=== PATIENT | female | born 1950 | race Caucasian/White ===

== ENCOUNTER → 2019-06-16 12:50 | Outpatient (BNVA) | payer MEDICARE, SELFPAY | PROVIDERS: Family Provider Family Medicine; PCP Family Medicine; Referring Provider Registered Nurse; Visit Provider Anesthesiology Pain Medicine | DX: M54.9 Dorsalgia, unspecified (principal); Z79.891 Long term (current) use of opiate analgesic | CPT/HCPCS: 99204 ==

== ENCOUNTER → 2019-07-14 10:24 | Outpatient (BNVA) | payer MEDICARE, SELFPAY | PROVIDERS: Family Provider Family Medicine; PCP Family Medicine; Visit Provider Anesthesiology Pain Medicine | DX: M51.36 Other intervertebral disc degeneration, lumbar region (principal); M54.9 Dorsalgia, unspecified; Z79.891 Long term (current) use of opiate analgesic | CPT/HCPCS: 99213; 99214 ==

== ENCOUNTER → 2019-08-25 09:25 | Outpatient (BNVA) | payer MEDICARE, SELFPAY | PROVIDERS: Family Provider Family Medicine; PCP Family Medicine; Visit Provider Anesthesiology Pain Medicine | DX: M51.36 Other intervertebral disc degeneration, lumbar region (principal); M54.9 Dorsalgia, unspecified; Z79.891 Long term (current) use of opiate analgesic | CPT/HCPCS: 99213; 99214 ==

== ENCOUNTER → 2019-10-04 12:31 | Outpatient (BNVA) | payer MEDICARE, SELFPAY | PROVIDERS: Family Provider Family Medicine; PCP Family Medicine; Visit Provider Anesthesiology Pain Medicine | DX: M47.816 Spondylosis without myelopathy or radiculopathy, lumbar region (principal); Z79.891 Long term (current) use of opiate analgesic | CPT/HCPCS: 64493; 64494; 64495; J3490 ==

== ENCOUNTER → 2019-10-18 09:49 | Outpatient (BNVA) | payer MEDICARE, SELFPAY | PROVIDERS: Family Provider Family Medicine; PCP Family Medicine; Visit Provider Anesthesiology Pain Medicine | DX: M54.42 Lumbago with sciatica, left side (principal); M51.36 Other intervertebral disc degeneration, lumbar region; M47.816 Spondylosis without myelopathy or radiculopathy, lumbar region; M54.9 Dorsalgia, unspecified | CPT/HCPCS: 99213 ==

== ENCOUNTER 2024-09-02 12:21 | Emergency (ER) | payer MEDICARE, SELFPAY ==
--- OUTSIDE RECORDS SUMMARY | 2024-09-02 12:31 | XMS_ITS | Clinical Summary ---
Author Organization [facility] Address [address] 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 Name Role Phone Anusha Woodward DO Primary Care Provider Allergies Active Allergy Reactions Criticality Noted Date Comments Adhesive Tape Other (See Comments) 04/25/2009 blisters Adhesive Tape-Silicones Other (See Comments) Other reaction(s): Other (See Comments), blisters, Other reaction(s): Other (See Comments), blisters Codeine Other (See Comments) 09/01/2007 Stomach cramps, Other reaction(s): Other (See Comments), Stomach cramps, Stomach cramps, Other reaction(s): Other (See Comments), Stomach cramps Tetracycline Nausea and Vomiting,Other (See Comments) Low 09/01/2007 Medications cholecalciferol, vitamin D3, (VITAMIN D3 ORAL) Take 1 Capsule by mouth daily. Active venlafaxine (EFFEXOR XR) 75 mg Extended Release 24 hour capsule Take 1 Capsule (75 mg) by mouth daily. 90 Capsule 4 4 Active lisinopriL (PRINIVIL) 10 mg tabletIndication s:Essential hypertension Take 1 tablet by mouth once daily 100 Tablet 3 4 Active simvastatin (ZOCOR) 20 mg tablet Take 1 tablet by mouth once daily 90 Tablet 4 4 Active rOPINIRole (REQUIP) 2 mg TabletIndication s:Restless leg syndrome Take 1 Tablet (2 mg) by mouth daily at bedtime. 100 Tablet 3 4 Active pantoprazole (PROTONIX) 40 mg Tablet, Delayed Release (E.C.)Indication s:Gastroesophage al reflux disease without esophagitis Take 1 Tablet (40 mg) by mouth daily. 90 Tablet 4 4 Active amitriptyline (ELAVIL) 50 mg tabletIndication s:Restless leg syndrome Take 1 Tablet (50 mg) by mouth daily at bedtime. 90 Tablet 4 4 Active FERROUS SULFATE ORAL Take by mouth daily. Active isosorbide mononitrate (IMDUR) 120 mg Extended Release 24 hour tablet Take 1 Tablet (120 mg) by mouth daily in the morning. 100 Tablet 3 4 Active traZODone (DESYREL) 150 mg tablet Take 1 Tablet (150 mg) by mouth daily at bedtime. 90 Tablet 4 4 Active VITAMIN A ORAL Take 1 Tablet by mouth daily. Active magnesium oxide 500 mg magnesium Tablet Take 1 Tablet by mouth daily at bedtime. Active nitroglycerin (NITROSTAT) 0.4 mg Tablet, SublingualIndica tions:Angina pectoris Place 1 Tablet (0.4 mg) under tongue every 5 minutes as needed for Chest Pain. 50 Tablet 2 5 Active ASCORBIC ACID, VITAMIN C, ORAL Take by mouth. Active fluticasone propionate (FLONASE) 50 mcg/spray [place], Suspension nasal inhalerIndicatio ns:Chronic nasal congestion Administer 2 Sprays in each nostril daily. 16 Gram 3 5 Active HYDROcodone-acet aminophen (NORCO) 10-325 mg TabletIndication s:Closed wedge compression fracture of L2 vertebra, sequela Take 1 Tablet by mouth every 8 hours as needed for Pain, Moderate. Do not fill until 08/12/2024 Max Daily Amount: 3 Tablets 90 Tablet 5 Active HYDROcodone-acet aminophen (NORCO) 10-325 mg TabletIndication s:Closed wedge compression fracture of L2 vertebra, sequela Take 1 Tablet by mouth every 8 hours as needed for Pain, Moderate. Max Daily Amount: 3 Tablets 90 Tablet 5 025 Discontin ued(Reord er) Active Problems Problem Noted Date Diagnosed Date Closed wedge compression fracture of second lumb ar vertebra 07/14/2022 Restless leg syndrome 07/14/2022 Obesity (BMI 30.0-34.9) 03/15/2022 Prediabetes 12/14/2021 Stage 3b chronic kidney disease 07/15/2019 Overview (08/25/2020): 35-40% Kidney Function sees Dr Nelson 35-40% Kidney Function sees Dr Nelson 35-40% Kidney Function sees Dr Nelson 35-40% Kidney Function sees Dr Nelson Opiate analgesic use agreement exists 05/07/2017 Hx of CABG 01/27/2012 Benign essential hypertension 01/27/2012 Right proximal humerus fracture 06/12/2010 Lower limb length difference 05/02/2010 Ribs, multiple fractures 05/16/2009 Raynaud phenomenon 05/16/2009 Facet arthropathy of spine 05/16/2009 Overview (08/25/2020): L4-5 L4-5 L4-5 L4-5 Closed fracture of metatarsal bone 05/16/2009 Overview (08/25/2020): Right 1st Right 1st Right 1st Right 1st Pain in joint, ankle and foot 04/25/2009 Overview (08/25/2020): Distal right 5th metatarsal area Distal right 5th metatarsal area Distal right 5th metatarsal area Distal right 5th metatarsal area Atherosclerosis of sioux co ronary artery of sioux heart without angina pectoris 10/26/2008 Mixed hyperlipidemia 10/01/2008 Recurrent major depressive disorder, in full rem ission Gastroesophageal reflux disease without esophagi tis Essential hypertension GERD (gastroesophageal reflux disease) Resolved Problems Problem Noted Date Diagnosed Date Resolved Date Compression fracture of L4 lumbar vertebra 03/28/2009 04/25/2009 Compression fracture of thoracic vertebra 03/28/2009 04/25/2009 Severe obesity (BMI 35.0-39. 9) with comorbidity 10/26/2008 03/15/2022 Encounters Date Type Department Care Team Description 08/09/2024 Refill [facility] [address] [place] [address] Anusha Woodward DO Closed wedge compression fracture of L2 vertebra, sequela 07/21/2024 External Device Data [facility] ABSTRACTION Provider, Abstract 07/20/2024 External Device Data STL ABSTRACTION Provider, Abstract 07/12/2024 Refill [facility] [address] [place] [address] Anusha Woodward DO Closed wedge compression fracture of L2 vertebra, sequela 07/08/2024 8:50 AM CDT Office Visit [facility] Gen Spec Surg [address] [place] [address] Cortez Rivas PA Status post Cristela fundoplication (Primary Dx) 07/05/2024 Results Follow-Up [facility] [address] [place] [address] Anusha Woodward DO CBC WITH DIFFERENTIAL, COMPREHENSIVE METABOLIC PANEL, TSH, Additional followed-up results: 3 07/01/2024 1:40 PM CDT Office Visit [facility] [address] [place] [address] Anusha Woodward DO Essential hypertension (Primary Dx); Mixed hyperlipidemia; Stage 3b chronic kidney disease (CMS/HCC); Atherosclerosis of sioux coronary artery of sioux heart without angina pectoris; Iron deficiency anemia due to chronic blood loss; Encounter for screening for diabetes mellitus; Closed wedge compression fracture of L2 vertebra, sequela; Chronic nasal congestion; Medicare annual wellness visit, subsequent; Recurrent major depressive disorder, in full remission; Gastroesophageal reflux disease without esophagitis; Restless leg syndrome; Hx of CABG; Obesity (BMI 30.0-34.9) 06/08/2024 1:40 PM CDT Office Visit [facility] Gen Spec [facility] [place] [address] [place] [phone] Cortez Rivas PA Status post Critsela fundoplication (Primary Dx) 06/07/2024 Refill [facility] [place] [address] [place] [phone] Anusha Woodward, DO Closed wedge compression fracture of L2 vertebra, sequela from Last 3 Months Immunizations Immunization Administration Dates Next Due (ADACEL/BOOSTRIX)(10 YR UP) TDAP VACCINE, 0.5ML, IM 08/15/2020 (PNEUMOVAX 23)(50 YRS UP) PN EUMOCOCCAL POLYSACCHARIDE (PPV23) 0.5 ML, IM 08/11/2013 (PREVNAR 13)(6 WKS UP) PNEUM OCOCCAL CONJUGATE (PCV13) 0.5 ML, IM 01/05/2020 (SPIKEVAX) (12 YRS UP PRIMAR Y SERIES) COVID-19 VACCINE - MRNA-1273(PF) 100 MCG/0.5 ML IM SUSP 05/09/2020,04/07/2020 INFLUENZA VACCINE QUADRIVALE NT 3 YR UP PF IM 12/01/2014 INFLUENZA VACCINE QUADRIVALE NT 6 MOS UP PF IM 12/01/2014 Influenza Seasonal Unspecifi ed Formulation IM 12/01/2010,12/01/2008,12/09/2007 Pneumococcal 13-berkley Conj Vac c Patient Supplied 01/05/2020 Pneumococcal 7-valent conjugate vaccine IM 03/03 Pneumococcal Polysaccharide Vacc 23-berkley IM SCHIP 08/11/2013 Pneumococcal conjugate, unsp ecified formulation 03/03/2007 Family History Medical History Relation Name Comments Heart Disease Brother 1 Serafin High Cholesterol Brother 1 Serafin Hypertension Brother 1 Serafin Heart Disease Brother 2 [place] Heart Disease Brother 3 Carm[place] Stroke Father Jesus Fathers side lebron s history of aneurysm Asthma Mother Rupa Colon Polyps Mother Rupa Heart Disease Mother Varney High Cholesterol Mother Varney Hypertension Mother Varney Mothers side lebron s history of aneurysms Heart Disease Other Asthma Sister 1 Troy Diabetes Sister 1 Dora Heart Disease Sister 1 Troy Kidney Disease Sister 1 Dora Thyroid Disease Sister 1 Dora Depression Sister 2 Kina High Cholesterol Sister 2 Kina Hypertension Sister 3 Troy Arrivlla Hypertension Sister 4 Dora Arrivlla Depression Sister 5 Kina High Cholesterol Sister 5 Kina Asthma Son 1 Leno Asthma Son 2 Leno Colon Cancer Neg Hx Relation Name Status Comments Brother 1 Serafin Brother 2 aCrmel Brother 3 Carmel Alive Father Jesus Mother Rupa Other Sister 1 Dora Sister 2 Kina Sister 3 Troy Arrivlla Sister 4 Troy Arrivlla Alive Sister 5 Kina Alive Son 1 Leno Son 2 Leno Alive Social History Tobacco Use Types Packs/Day Years Used Date Smoking Tobacco: Former Cigarettes 2 20 0 08/16/1979 - 08/16/1999 Passive Smoke Exposure: Past Smokeless Tobacco: Never Tobacco Cessation:Counseling Given: Not Answered Alcohol Use Standard Drinks/Week Comments No 0 (1 standard drink = 0.6 oz pur e alcohol) Financial Resource Strain Answer Date R ecorded How hard is it for you to pa y for the very basics like food, housing, medical care, and heating? Somewhat hard 04/13/2021 Food Insecurity Answer Date Recorded In the past 12 months, have you worried that your food would run out before you had money to buy more? Never true 04/13/2021 In the past 12 months, did y ou run out of food and didn't have money to buy more? Never true 04/13/2021 Transportation Needs Answer Date Record ed In the past 12 months, has l ack of transportation kept you from medical appointments or from getting medications? No 04/13/2021 Lack of Transportation (Non-Medical) Not on file 04/13/2021 Feeling Safe Answer Date Recorded Are you in a relationship wi th someone who hurts you emotionally and/or physically? 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 Gender Identity Not on file Sexual Orientation Not on file Last Filed Vital Signs Vital Sign Reading Time Taken Comments Blood Pressure 110/68 07/08/2024 9:12 AM CDT Pulse 69 07/08/2024 9:12 AM CDT Temperature 36.2 C (97.2 F) 07/08/2024 9:12 AM CDT Respiratory Rate 16 06/08/2024 1:27 PM CDT Oxygen Saturation 95% 07/08/2024 9:12 AM CDT Inhaled Oxygen Concentration - - Weight 75.3 kg (166 lb) 07/08/2024 9:12 AM CDT Height 157.5 cm (5' 2 ) 07/08/2024 9:12 AM CDT Body Mass Index 30.36 07/08/2024 9:12 AM CDT Plan of Treatment Upcoming Encounters Date Type Department Care Team (Late st Contact Info) Description 10/26/2024 11:40 AM CDT Office Visit [facility] [address] [place] [address] Anusha Woodward, DO [address] [place] [address] 01/05/2025 11:40 AM CHIEF REVENUE OFFICER Office Visit [facility] [address] [place] [address] Anusha Woodward, DO [address] [place] [address] Health Maintenance Due Date Last Done Comments FIT/FOBT Q 1 YEAR (AUTO ORDER) 01/09/1968 OSTEOPOROSIS SCREENING 01/09/1968 FIT/FOBT Q 1 year 1995 Flex Sig/CT Colonography Q 5 years 1995 ZOSTER VACCINE (1 of 2) 01/09/2000 RSV VACCINE (60+ or ) (1 - Risk 60-74 years 1-dose series) 2010 COVID-19 Vaccine (2023-2 5 season) 2023 05/09/2020, 04/07/2020 INFLUENZA VACCINE (#1) 2024 4, 06/24/2023, 12/14/2021, Additional history exists PNEUMOCOCCAL VACCINE 50+ YEA RS (3 of 3 - PCV20 or PCV21) 01/04/2025 01/05/2020, 01/05/2020, 08/11/2013, Additional history exists FIT-DNA Q 3 years 03/27/2025 03/27/2022 FIT/ DNA Q 3 YEARS (AUTO ORDER) 03/27/2025 3, 03/27/2022 BREAST CANCER SCREENING 05/03/2025 05/03/2024, 06/21 FLEX SIG/CT COLONOGRAPHY Q 5 YEARS (AUTO ORDER) 12/09/2028 12/10/2023, 12/10/2023 DTAP/TDAP/TD VACCINES (2 - T d or Tdap) 08/15/2030 08/15/2020 COLORECTAL CANCER SCREENING (AUTO ORDER) 12/09/2033 12/10/2023, 12/10/2023 COLORECTAL SCREENING 12/09/2033 12/10/2023, 12/10/19 24 Colorectal Cancer Screening (AUTO ORDER) 12/09/2033 Colorectal Cancer Screening 12/09/2033 [place] Preventative Visit/Annual Wellness Visit Completed 07/01/2024, 06/24/2023, 06/26/2022, Additional history exists Medical Devices Implanted Type Area Film Waxer Device Identifier Shelf Expiration Date Model / Serial / Lot Log [id number] - Cement - 1 - Cement Bone Co1a Implanted:Qt y: 1 on 04/03/2009 Cement Spine Thoracic [employer] - SPINAL fka KYPHON 11/02/2011 CO1A / / [id number] Log [id number] - Cement - 1 - Cement Bone Co1a Implanted:Qt y: 1 on 04/03/2009 Cement Spine Lumbar MEDTRONIC - SPINAL fka KYPHON 08/02/2011 CO1A / / [id number] Kyphons Activos-01/01 Implanted:Qt y: 1 on 01/17/2021 by Hebert Chacon MD Cement N/A: Vertebrae [id number] 07/01/2023 / / [id number] Description:L-2 Procedures Procedure Name Priority Date/Time Associated Diagnosis Comments IRON, TIBC, AND PERCENT SATURATION Routine 07/01/2024 3:04 PM CDT Iron deficiency anemia due to chronic blood loss LIPID PANEL Routine 07/01/2024 3:04 PM CDT Essential hypertension Mixed hyperlipidemia Stage 3b chronic kidney disease (CMS/HCC) Atherosclerosis of sioux coronary artery of sioux heart without angina pectoris Iron deficiency anemia due to chronic blood loss HEMOGLOBIN A1C Routine 07/01/2024 3:04 PM CDT Essential hypertension Mixed hyperlipidemia Stage 3b chronic kidney disease (CMS/HCC) Atherosclerosis of sioux coronary artery of sioux heart without angina pectoris Iron deficiency anemia due to chronic blood loss Encounter for screening for diabetes mellitus TSH Routine 07/01/2024 3:04 PM CDT Essential hypertension Mixed hyperlipidemia Stage 3b chronic kidney disease (CMS/HCC) Atherosclerosis of sioux coronary artery of sioux heart without angina pectoris Iron deficiency anemia due to chronic blood loss COMPREHENSIVE METABOLIC PANEL Routine 07/01/2024 3:04 PM CDT Essential hypertension Mixed hyperlipidemia Stage 3b chronic kidney disease (CMS/HCC) Atherosclerosis of sioux coronary artery of sioux heart without angina pectoris Iron deficiency anemia due to chronic blood loss CBC WITH DIFFERENTIAL Routine 07/01/2024 3:04 PM CDT Essential hypertension Mixed hyperlipidemia Stage 3b chronic kidney disease (CMS/HCC) Atherosclerosis of sioux coronary artery of sioux heart without angina pectoris Iron deficiency anemia due to chronic blood loss MAMMO 3D TERESA SCREEN BILAT W OR WO CAD Routine 05/03/2024 Screening mammogram, encounter for COLONOSCOPY REPORT 12/10/2023 1: 47 PM CDT COLON CANCER SCREEN, STOOL DNA Routine 03/27/2022 5:15 PM CHIEF REVENUE OFFICER Screening for colon cancer from Last 3 Months or Most Recently Relevant to Health Maintenance Results * IRON, TIBC, AND PERCENT SATURATION (07/01/2024 3:04 PM CDT) IRON 89 45 - 160 mcg/dL [facility] TIBC 387 250 - 450 mcg/dL (calc) [facility] IRON % SATURATION 23 16 - 45 % (calc) [facility] Comment: Test Performed at: [facility] [address] Yudy Modi MD Blood 07/01/2024 3:04 PM CDT 07/01/2024 3:05 PM CDT us Anusha Woodward DO CHEMISTRY ORDERABLES Final Result [facility] [phone] [facility] [address] * CBC WITH DIFFERENTIAL (07/01/2024 3:04 PM CDT) WBC 5.9 3.8 - 10.8 Thousand/u L [facility] RBC 4.23 3.80 - 5.10 Million/uL [facility] HEMOGLOBIN 12.9 11.7 - 15.5 g/dL [facility] HEMATOCRIT 40.3 35.0 - 45.0 % [facility] MCV 95.3 80.0 - 100.0 fL [facility] MCH 30.5 27.0 - 33.0 pg [facility] MCHC 32.0 32.0 - 36.0 g/dL [facility] Comment: For adults, a slight decrease in the calculated MCHC value (in the range of 30 to 32 g/dL) is most likely not clinically significant; however, it should be interpreted with caution in correlation with other red cell parameters and the patient's clinical condition. RDW 12.6 11.0 - 15.0 % [facility] PLATELETS 276 140 - 400 Thousand/u L [facility] MPV 9.5 7.5 - 12.5 fL [facility] NEUTROPHIL ABSOLUTE 3,522 1,500 - 7,800 cells/uL [facility] LYMPHOCYTE ABSOLUTE 1,392 850 - 3,900 cells/uL [facility] MONOCYTE ABSOLUTE 679 200 - 950 cells/uL [facility] EOSINOPHIL ABSOLUTE 277 15 - 500 cells/uL [facility] BASOPHILS ABSOLUTE 30 0 - 200 cells/uL [facility] NEUTROPHIL 59.7 % [facility] LYMPHOCYTES 23.6 % [facility] MONOCYTE 11.5 % [facility] EOSINOPHILS 4.7 % [facility] BASOPHILS 0.5 % [facility] Comment: FASTING:UNKNOWN FASTING: UNKNOWN Test Performed at: [facility] [address] [facility] Blood 07/01/2024 3:04 PM CDT 07/01/2024 3:05 PM CDT Anusha L Crissy DO HEMATOLOGY ORDERABLES Final Result Performing Organization Address City/[facility]/ZIP Co de Phone Number [facility] [phone] [facility] [address] * TSH (07/01/2024 3:04 PM CDT) Pathologist [facility] TSH 2.53 0.40 - 4.50 mIU/L [facility] Comment: FASTING:UNKNOWN FASTING: UNKNOWN Test Performed at: [facility] [address] BrittStaci Modi MD Blood 07/01/2024 3:04 PM CDT 07/01/2024 3:05 PM CDT Anusha L Crissy DO CHEMISTRY ORDERABLES Final Result Performing Organization Address City/[facility]/ZIP Co de Phone Number [facility] [phone] [facility] [address] * (ABNORMAL) HEMOGLOBIN A1C (07/01/2024 3:04 PM CDT) HEMOGLOBIN A1C 5.7(H) <5.7 % [facility] Comment: For someone without known diabetes, a hemoglobin A1c value between 5.7% and 6.4% is consistent with prediabetes and should be confirmed with a follow-up test. For someone with known diabetes, a value <7% indicates that their diabetes is well controlled. A1c targets should be individualized based on duration of diabetes, age, comorbid conditions, and other considerations. This assay result is consistent with an increased risk of diabetes. Currently, no consensus exists regarding use of hemoglobin A1c for diagnosis of diabetes for children. ESTIMATED AVERAGE GLUCOSE (MG/DL) 117 mg/dL [facility] ESTIMATED AVERAGE GLUCOSE (MMOL/L) 6.5 mmol/L [facility] Comment: FASTING:UNKNOWN FASTING: UNKNOWN Test Performed at: [facility] [address] [facility] [place] [address] Yudy Modi MD Blood 07/01/2024 3:04 PM CDT 07/01/2024 3:05 PM CDT Anusha Woodward DO CHEMISTRY ORDERABLES Final Result [facility] [phone] [facility] [address] [facility] [place] [address] * (ABNORMAL) LIPID PANEL (07/01/2024 3:04 PM CDT) CHOLESTEROL 173 <200 mg/dL [facility] HDL 62 > OR = 50 mg/dL [facility] TRIGLYCERIDE 174(H) <150 mg/dL [facility] LDL CALCULATED 84 mg/dL (calc) [facility] Comment: Reference range: <100 Desirable range <100 mg/dL for primary prevention; <70 mg/dL for patients with CHD or diabetic patients with > or = 2 CHD risk factors. LDL-C is now calculated using the Shea calculation, which is a validated novel method providing better accuracy than the Friedewald equation in the estimation of LDL-C. Stanley MATTA et al. RYAN. 2013;310(19): 3743-6716 (http://education.Critique^It/faq/XWU325) CHOL/HDL RATIO 2.8 <5.0 (calc) [facility] NON-HDL CHOLESTEROL 111 <130 mg/dL (calc) [facility] Comment: For patients with diabetes plus 1 major ASCVD risk factor, treating to a non-HDL-C goal of <100 mg/dL (LDL-C of <70 mg/dL) is considered a therapeutic option. Test Performed at: [facility] [address] [facility] [place] [address] Yudy Modi MD Blood 07/01/2024 3:04 PM CDT 07/01/2024 3:05 PM CDT us Anusha Woodward DO CHEMISTRY ORDERABLES Final Result [facility] [phone] [facility] [address] [place] [address] * (ABNORMAL) COMPREHENSIVE METABOLIC PANEL (07/01/2024 3:04 PM CDT) GLUCOSE 92 65 - 99 mg/dL [facility] Comment: Fasting reference interval BUN 21 7 - 25 mg/dL [facility] CREATININE 1.68(H) 0.60 - 1.00 mg/dL [facility] GFR 32(L) > OR = 60 mL/min/1.7 3m2 [facility] BUN/CREAT RATIO 13 6 - 22 (calc) [facility] SODIUM 135 135 - 146 mmol/L [facility] POTASSIUM 4.7 3.5 - 5.3 mmol/L [facility] CHLORIDE 101 98 - 110 mmol/L [facility] CO2 26 20 - 32 mmol/L [facility] CALCIUM 9.1 8.6 - 10.4 mg/dL [facility] TOTAL PROTEIN 6.7 6.1 - 8.1 g/dL [facility] ALBUMIN 4.3 3.6 - 5.1 g/dL [facility] GLOBULIN 2.4 1.9 - 3.7 g/dL (calc) [facility] ALBUMIN/GLOBULIN RATIO 1.8 1.0 - 2.5 (calc) [facility] BILIRUBIN TOTAL 0.3 0.2 - 1.2 mg/dL [facility] ALKALINE PHOSPHATASE 61 37 - 153 U/L [facility] AST 22 10 - 35 U/L [facility] ALT 16 6 - 29 U/L [facility] Comment: FASTING:UNKNOWN FASTING: UNKNOWN Test Performed at: [facility] [address] [facility] [place] [address] Yudy Modi MD Blood 07/01/2024 3:04 PM CDT 07/01/2024 3:05 PM CDT Anusha Woodward DO CHEMISTRY ORDERABLES Final Result [facility] [phone] [facility] [address] [facility] [place] [address] * MAMMO 3D TERESA SCREEN BILAT W OR WO CAD (05/03/2024) Anatomical Region Laterality Modality Breast Bilateral Mammography us Anusha Woodward DO MAMMO ORDERABLES Final Resu lt * COLONOSCOPY REPORT (12/10/2023 1:47 PM CDT) Narrative Procedure Note Jesus Huston MD - 12/10/2023 1:46 PM CDT [facility] GI Patient Name: Venecia Stein Procedure Date: 12/10/2023 Date of : 1950 Admit Type: Outpatient Age: 73 Attending MD: Jesus Huston , , Procedure: Colonoscopy Indications: Iron deficiency anemia Providers: Jesus Huston Referring MD: Anusha Woodward DO Medicines: Monitored Anesthesia Care Complications: No immediate complications. Procedure: After I obtained informed consent, the scope was passed under direct vision. Throughout the procedure, the patient's blood pressure, pulse, and oxygen saturations were monitored continuously. The Colonoscope was introduced through the anus and advanced to the terminal ileum, with identification of the appendiceal orifice and IC valve. The colonoscopy was performed without difficulty. The patient tolerated the procedure well. The quality of the bowel preparation was evaluated using the BBPS ([place] Bowel Preparation Scale) with scores of: Right Colon = 2 (minor amount of residual staining, small fragments of stool and/or opaque liquid, but mucosa seen well), Transverse Colon = 3 (entire mucosa seen well with no residual staining, small fragments of stool or opaque liquid) and Left Colon = 2 (minor amount of residual staining, small fragments of stool and/or opaque liquid, but mucosa seen well). The total BBPS score equals 7. Estimated Blood Loss: Estimated blood loss: none. Findings: The entire examined colon appeared normal on direct and retroflexion views. The terminal ileum appeared normal. Impression: - The entire examined colon is normal on direct and retroflexion views. - The examined portion of the ileum was normal. - No specimens collected. Recommendation: - Repeat colonoscopy is not recommended due to current age (66 years or older) for screening purposes. Jesus Huston, 12/10/2023 1:46:52 PM Number of Addenda: 0 Note Initiated On: 12/10/2023 12:48 PM Scope Withdrawal Time 0 hours 10 minutes 22 seconds Scope In: 1:06:29 PM Scope Out: 1:24:17 PM [address] [place], [place] Jesus Huston MD GI PROCEDURE ORDERABLES Final Result * COLON CANCER SCREEN, STOOL DNA (03/27/2022 5:15 PM CHIEF REVENUE OFFICER) COLOGUARD RESULT Negative Negative [facility] Comment: NEGATIVE TEST RESULT. A negative Cologuard result indicates a low likelihood that a colorectal cancer (CRC) or advanced adenoma (adenomatous polyps with more advanced pre-malignant features) is present. The chance that a person with a negative Cologuard test has a colorectal cancer is less than 1 in 1500 (negative predictive value >99.9%) or has an advanced adenoma is less than 5.3% (negative predictive value 94.7%). These data are based on a prospective cross-sectional study of 10,000 individuals at average risk for colorectal cancer who were screened with both Cologuard and colonoscopy. ([place], N Engl J Med 2014;370(14):0360-8881) The normal value (reference range) for this assay is negative. COLOGUARD RE-SCREENING RECOMMENDATION: Periodic colorectal cancer screening is an important part of preventive healthcare for asymptomatic individuals at average risk for colorectal cancer. Following a negative Cologuard result, the [place] [employer] and U.S. Multi-Society Task Force screening guidelines recommend a Cologuard re-screening interval of 3 years. References: [place] [employer] Guideline for Colorectal Cancer Screening: https://www.cancer.org/cancer/paoro-tiayaw-ynnoli/mkqsfbrix-ofqbwllkc-qzpiiqg/ac s-rec ommendations.html.; Mateo DK, Chanelle PALACIOS, Delia AbbottK, Colorectal Cancer Screening: Recommendations for Physicians and Patients from the U.S. Multi-Society Task Force on Colorectal Cancer Screening , Am J Gastroenterology 2017; 112:7416-6658. TEST DESCRIPTION: Composite algorithmic analysis of stool DNA-biomarkers with hemoglobin immunoassay. Quantitative values of individual biomarkers are not reportable and are not associated with individual biomarker result reference ranges. Cologuard is intended for colorectal cancer screening of adults of either sex, 45 years or older, who are at average-risk for colorectal cancer (CRC). Cologuard has been approved for use by the U.S. FDA. The performance of Cologuard was established in a cross sectional study of average-risk adults aged 50-84. Cologuard performance in patients ages 45 to 49 years was estimated by sub-group analysis of near-age groups. Colonoscopies performed for a positive result may find as the most clinically significant lesion: colorectal cancer [4.0%], advanced adenoma (including sessile serrated polyps greater than or equal to 1cm diameter) [20%] or non- advanced adenoma [31%]; or no colorectal neoplasia [45%]. These estimates are derived from a prospective cross-sectional screening study of 10,000 individuals at average risk for colorectal cancer who were screened with both Cologuard and colonoscopy. ([place], N Engl J Med 2014;370(14):1089-8035.) Cologuard may produce a false negative or false positive result (no colorectal cancer or precancerous polyp present at colonoscopy follow up). A negative Cologuard test result does not guarantee the absence of CRC or advanced adenoma (pre-cancer). The current Cologuard screening interval is every 3 years. ([place] [employer] and U.S. Multi-Society Task Force). Cologuard performance data in a 10,000 patient pivotal study using colonoscopy as the reference method can be accessed at the following location: www.[employer]/results. Additional description of the Cologuard test process, warnings and precautions can be found at www.Runteqoguard.com. Stool STOOL SPECIMEN / Unknown 03/27/2022 5:15 PM CHIEF REVENUE OFFICER 03/28/2022 6:08 PM CHIEF REVENUE OFFICER Kyle Lawson [employer] Fin al Result Tr[employer] CLIA # [id number] [address], [address] [place] [address] from Last 3 Months or Most Recently Relevant to Health Maintenance Insurance [facility] RX [employer] Medicare Part D RX INFOCROSSING Medicaid Advance Directives For more information, please contact: [phone] * Full Code (Latest Code Status on File) Date Activated Date Inactivated Comments 05/31/2024 3:02 PM 06/01/2024 1:35 PM * Full Code Date Activated Date Inactivated Comments 05/31/2024 11:36 AM 05/31/2024 3:02 PM Care Teams Professor Of Music Relationship Specialty Start Date End Date Anusha Woodward DO [address] [place] [phone] PCP - General Family Practice 04/29/17
--- OUTSIDE RECORDS SUMMARY | 2024-09-02 12:31 | XMS_ITS | Encounter Summary ---
Author Organization [facility] Address [address] [place] [address] Care Team Providers Care Public Accountant Name Role Phone Anusha Woodward DO Primary Care Provider [phone] Encounter Details Date Type Department Care Team (Latest Contact Info) Description 07/05/2024 Results Follow-Up [facility] [address] [place] [address] Anusha Woodward DO [address] [place] [address] CBC WITH DIFFERENTIAL, COMPREHENSIVE METABOLIC PANEL, TSH, Additional followed-up results: 3 Social History Tobacco Use Types Packs/Day Years Used Date Smoking Tobacco: Former Cigarettes 2 20 0 08/16/1979 - 08/16/1999 Passive Smoke Exposure: Past Smokeless Tobacco: Never Alcohol Use Standard Drinks/Week Comments No 0 [...] on file 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 Gender Identity Not on file Sexual Orientation Not on file documented as of this encounter Plan of Treatment Upcoming Encounters Date Type Department Care Team (Late st Contact Info) Description 10/26/2024 11:40 AM CDT Office Visit [facility] [address] [facility] [place] [phone] Anusha Woodward DO [address] [facility] [place] [address] 01/05/2025 11:40 AM ROSE GRADER Office Visit [facility] [address] [facility] [place] [phone] Anusha Woodward DO [address] [facility] [place] [address] documented as of this encounter Visit Diagnoses Not on filedocumented in this encounter Care Teams Public Accountant Relationship Specialty Start Date End Date Anusha Woodward DO [address] [facility] [place] [address] PCP - General Family Practice 04/29/17 documented as of this encounter
[2024-09-02 12:42] VITALS: BP 97/64; PULSE 74; RESP 17; TEMP 36.9; O2SAT 94; BMI 30.7
--- NOTE | 2024-09-02 13:07 | XR_ITS ---
WS: [id number] XR tibia fibula LT 2V [id number] REASON FOR EXAM: fall FINDINGS: The left tibia and fibula are intact without fracture. No radiopaque soft tissue foreign body. XR/XR tibia fibula LT 2V [id number] IMPRESSION: No acute abnormality.
--- NOTE | 2024-09-02 13:07 | XR_ITS ---
WS: [id number] XR ankle LT min 3V* [id number] REASON FOR EXAM: fall FINDINGS: Moderate soft tissue swelling over the lateral malleolus. No acute fracture identified. Joint spaces of the ankle are intact and well preserved. XR/XR ankle LT min 3V* [id number] IMPRESSION: No acute abnormality.
--- NOTE | 2024-09-02 13:07 | XR_ITS ---
WS: [id number] XR foot LT min 3V* [id number] REASON FOR EXAM: fall FINDINGS: No acute fracture. The joint spaces of the forefoot, midfoot, and the hindfoot are intact and relatively well preserved. No radiopaque soft tissue foreign body. XR/XR foot LT min 3V* [id number] IMPRESSION: No acute bone or joint abnormality.
--- NOTE | 2024-09-02 14:02 | W.ED.EXTPRO ---
HPI - Extremity Problem General: Chief complaint: Extremity Injury, Lower Stated complaint: L foot pain Time Seen by Provider: 09/02/24 13:00 History of Present Illness: This patient is a 74-year-old who presents with left ankle pain after she fell through the floor of [employer] yesterday. She says her ankle twisted as she fell through a rotten board. She fell in up to her crotch but her foot did not hit anything else once it had broken through the floor. She has a little bit of left hip discomfort laterally but believes that is a bruise. She denies any other injuries. She has pain and swelling in the foot and ankle and cramping in her left calf. She put ice on the area and kept it elevated last night. She took hydrocodone this morning at around 7:00. She has not taken anything else for pain. She has pain with weightbearing and with any movement. She has some numbness on the medial aspect anterior to the medial malleolus. No numbness distally. Related Data Home Medications ?Medication ?Instructions ?Recorded ?Confirmed amitriptyline 50 mg tablet 50 mg PO DAILY 06/16/19 10/18/19 fluticasone propionate 50 2 spray intranasal DAILY 06/16/19 10/18/19 mcg/actuation nasal spray,suspension isosorbide mononitrate 120 mg 120 mg PO QAM 06/16/19 10/18/19 tablet,extended release 24 hr lisinopril 10 mg tablet 10 mg PO DAILY 06/16/19 10/18/19 nitroglycerin 0.4 mg sublingual 0.4 mg sublingual Q5M PRN 06/16/19 10/18/19 tablet omeprazole 40 mg capsule,delayed 40 mg PO DAILY 06/16/19 10/18/19 release ropinirole 2 mg tablet 2 mg PO DAILY 06/16/19 10/18/19 simvastatin 20 mg tablet 20 mg PO DAILY 06/16/19 10/18/19 trazodone 150 mg tablet 150 mg PO DAILY 06/16/19 10/18/19 venlafaxine 75 mg capsule,extended 75 mg PO DAILY 06/16/19 10/18/19 release 24 hr Previous Rx's ?Medication ?Instructions ?Recorded hydrocodone 10 mg-acetaminophen 1 tab PO BID PRN chronic pain 30 10/18/19 325 mg tablet (Hollister) days #60 tabs Allergies Allergy/AdvReac Type Severity Reaction Status Date / Time adhesive Allergy Mild BLISTERS Verified 10/18/19 10:21 oxycodone AdvReac N / V Verified 10/18/19 10:21 tetracycline AdvReac VOMITING Verified 10/18/19 10:21 [facility] ED PFSH: Medical History (Updated 09/02/24 @ 14:15 by Janice Golden MD) Bilateral low back pain DDD (degenerative disc disease), lumbar Family History Father Stroke Family/Other Psychiatric illness DEPRESSION Other Heart disease Lung disease Social History Smoking and tobacco/nicotine status: former use of tobacco/nicotine Alcohol intake: never Substance/Drug Use: never Marital status: / Physical Exam Const: COMMON NORMALS: no acute distress, patient oriented x3, no limitations and alert GENERAL APPEARANCE: cooperative and comfortable HENMT: HEAD & SCALP: normal to inspection FACE & SINUS: normal facial exam Eye: GENERAL EYE: appearance normal, both eyes and all related structures Neck/C-Spine: COMMON NORMALS: supple, no meningeal signs and no JVD Resp: COMMON NORMALS: normal respiratory effort, No use of accessory muscles and clear to auscultation bilaterally AUSCULTATION: clear to auscultation bilaterally Cardio: COMMON NORMALS: no JVD, regular rate, regular rhythm and No murmurs present (Cardio) RATE: regular rate RHYTHM: regular rhythm GI: COMMON NORMALS: Normal to inspection, nondistended, normoactive bowel sounds present, Soft to palpation and non-tender INSPECTION: Yes normal to inspection AUSCULTATION: Yes normoactive bowel sounds PALPATION: Yes Soft to palpation Back/Pelvis: COMMON NORMALS: thoracic and lumbar spine normal to inspection Extremity: COMMON NORMALS: normal to inspection NARRATIVE EXTREMITY EXAM: Left lower extremity with significant bruising from the ankle to the toes. Tenderness mostly over the medial aspect of the midfoot dorsally and anterior to the medial malleolus. No obvious deformity. There is significant tenderness to palpation in those areas. Neurovascular function distal is intact. She describes some numbness over an area just anterior to the medial malleolus. Tenderness to palpation of both calves although no swelling or cords are palpable. Mild diffuse tenderness of the left lower leg but no specific bony tenderness over the fibular head. Neuro: COMMON NORMALS: patient oriented x3, moves all extremities, no focal motor deficits and no sensory deficits noted SENSORIUM/ORIENTATION: Yes alert MENINGEAL SIGNS: Yes no meningeal signs Psych: COMMON NORMALS: mental status grossly normal, cooperative and normal affect Skin: COMMON NORMALS: no rashes or lesions noted and turgor normal GENERAL SKIN EXAM: no rashes or lesions noted and turgor normal Course Vital Signs: Vital signs: Vital Signs Temperature 98.5 F 09/02/24 12:42 Pulse Rate 63 09/02/24 14:28 Respiratory Rate 17 09/02/24 12:42 Blood Pressure 92/47 09/02/24 14:28 Pulse Oximetry 100 09/02/24 14:28 Oxygen Delivery Me thod Room Air 09/02/24 12:42 MDM - Extremity (Nontraumatic) Medical Decision Making Patient with a twist and fall of her left ankle. She does not appear to have any other injuries. X-rays were negative for any fractures. She most likely will just need to continue the ice and elevation. Rest and limited weightbearing. Lab Data Radiology Impressions Ankle X-Ray 09/02/24 13:07 IMPRESSION: No acute abnormality. Foot X-Ray 09/02/24 13:07 IMPRESSION: No acute bone or joint abnormality. Tibia/Fibula X-Ray 09/02/24 13:07 IMPRESSION: No acute abnormality. All radiology interpretation(s) finalized by discharge Discharge Plan Discharge Patient Disposition: Home Clinical Impression: Ankle sprain and strain Condition: Stable Prescriptions: No Action hydrocodone-acetaminophen [Hollister] 10-325 mg tablet 1 tab PO BID MDD 3 PRN (Reason: chronic pain ) 30 Days Qty: 60 0RF Rx Instructions: may fill 30 days after previous refill. isosorbide mononitrate 120 mg tablet extended release 24 hr 120 mg PO QAM nitroglycerin 0.4 mg tablet, sublingual 0.4 mg SUBLINGUAL Q5M PRN trazodone 150 mg tablet 150 mg PO DAILY lisinopril 10 mg tablet 10 mg PO DAILY venlafaxine 75 mg capsule,extended release 24hr 75 mg PO DAILY omeprazole 40 mg capsule,delayed release(DR/EC) 40 mg PO DAILY amitriptyline 50 mg tablet 50 mg PO DAILY ropinirole 2 mg tablet 2 mg PO DAILY simvastatin 20 mg tablet 20 mg PO DAILY fluticasone propionate 50 mcg/actuation spray,suspension 2 spray INTRANASAL DAILY Discharge Orders: Discharge ED (Routine); Ordered 09/02/24 Ordered By: Janice Golden Referrals: Anusha Woodward DO [Primary Care Provider, Family Practice] Discharge Activity: Limit activity as instructed Patient Instructions: Opioid Safety, Pain Management, Patient Portal & [facility] Instructions Activity Restrictions/Additional Instructions: Continue ice or heat, elevate and limit weight bearing. Print Language: Ukrainian Coding Level of Care Code ED Scrap Cutter for Jay Deras
[2024-09-02 14:28] VITALS: BP 92/47; PULSE 63; O2SAT 100
== END 2024-09-02 14:30 | disposition home or self-care (01) ==
PROVIDERS: Emergency Provider Emergency Medicine; PCP Family Medicine
DX: S93.402A Sprain of unspecified ligament of left ankle, initial encounter (principal); Z87.891 Personal history of nicotine dependence; W19.XXXA Unspecified fall, initial encounter
CPT/HCPCS: 73590; 73610; 73630; 99283